=== PATIENT | female | born 1965 | race Caucasian/White ===

== ENCOUNTER 2016-09-19 19:00 | Emergency (ER) | payer BC, OTHER ==
[2016-09-19 19:24] VITALS: BP 115/62
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
== END 2016-09-19 19:47 | disposition home or self-care (01) ==
LOC: UCCORT 19:00
DX: S39.012A Strain of muscle, fascia and tendon of lower back, initial encounter (principal); V40.5XXA Car driver injured in collision with pedestrian or animal in traffic accident, initial encounter; Y93.89 Activity, other specified; Y92.410 Unspecified street and highway as the place of occurrence of the external cause; Z88.1 Allergy status to other antibiotic agents; Z88.7 Allergy status to serum and vaccine; Z87.891 Personal history of nicotine dependence
CPT/HCPCS: 99212; G0463

== ENCOUNTER 2018-02-06 19:00 | Emergency (ER) | payer BC, OTHER ==
[2018-02-06 19:26] VITALS: BP 112/75
--- NOTE | 2018-02-06 20:23 | ED ---
GI/ HPI - HPI Summary HPI Summary: 53 yr old with dysuria, frequency, and some blood in urine. Onset of symptoms two days ago. No abdominal pain or back pain. no fever or chills. No other complaints. - History of Current Complaint Chief Complaint: UCGU Time Seen by Provider: 02/06/18 19:36 Stated Complaint: URINARY COMPLAINT Hx Last Menstrual Period: 2003 Pain Intensity: 2 - Additional Pertinent History Primary Care Physician: NIMO - Allergy/Home Medications Allergies/Adverse Reactions: Allergies Allergy/AdvReac Type Severity Reaction Status Date / Time hydrocodone Allergy Nausea And Verified 02/06/18 19:22 Vomiting pineapple Allergy Swelling Verified 02/06/18 19:22 Of Face,Lips,& Throat pneumococcal vaccine Allergy Swelling Verified 02/06/18 19:22 [From Pneumovax 23] raw tomato Allergy Intermediate THROAT Uncoded 02/06/18 19:22 SWELLS, ITCHING seasonal allergies Allergy Eyes Uncoded 02/06/18 19:22 Itchy/Swollen/Red/Watery PMH/Surg Hx/FS Hx/Imm Hx Endocrine/Hematology History: Reports: Hx Blood Transfusions - After D&C Denies: Hx Diabetes, Hx Thyroid Disease Cardiovascular History: Reports: Hx Cardiac Arrest - During D&C surgery, Other Cardiovascular Problems/Disorders - LYMPHEDEMA LEGS BILATERAL Denies: Hx Hypertension, Hx Pacemaker/ICD Respiratory History: Reports: Hx Asthma, Hx Sleep Apnea - evaluation for 02/2014 , Other Respiratory Problems/Disorders - hx pneumothorax Denies: Hx Chronic Obstructive Pulmonary Disease (COPD) GI History: Reports: Hx Gall Bladder Disease, Other GI Disorders - colitis Denies: Hx Cirrhosis, Hx Ulcer History: Reports: Other Problems/Disorders - HYSTERECTOMY 2003 Denies: Hx Renal Disease Musculoskeletal History: Reports: Other Musculoskeletal History - lymphedema bilateral LE's Sensory History: Reports: Hx Contacts or Glasses - Reading glasses Denies: Hx Hearing Aid Opthamlomology History: Reports: Hx Contacts or Glasses - Reading glasses Psychiatric History: Reports: Hx Depression, Hx Panic Disorder - Cancer History Hx Chemotherapy: No Hx Radiation Therapy: No - Surgical History Surgery Procedure, Year, and Place: hysterectomy 2003. d and c and with subsequent femoral artery repair and lung collapse. GALL BLADDER REMOVAL - 06/17 Hx Anesthesia Reactions: No Infectious Disease History: No Infectious Disease History: Denies: Hx Clostridium Difficile, Hx Hepatitis, Hx Human Immunodeficiency Virus (HIV), Hx of Known/Suspected MRSA, Hx Shingles, Hx Tuberculosis, Hx Known/ Suspected VRE, Hx Known/Suspected VRSA, History Other Infectious Disease, Traveled Outside the [place] in Last 30 Days - Family History Known Family History: Positive: Hypertension - Social History Alcohol Use: Occasionally Alcohol Amount: 1 GLASS WINE/MONTH Substance Use Type: Reports: None Smoking Status (MU): Former Smoker Type: Cigarettes Amount Used/How Often: 1/2 PPD FOR 9 YRS Length of Time of Smoking/Using Tobacco: 8 years Have You Smoked in the Last Year: No Review of Systems Constitutional: Negative Positive: dysuria, frequency All Other Systems Reviewed And Are Negative: Yes Physical Exam Triage Information Reviewed: Yes Vital Signs On Initial Exam: Initial Vitals Temp Pulse Resp BP Pulse Ox 98.9 F 69 17 112/75 98 02/06/18 19:18 02/06/18 19:18 02/06/18 19:18 02/06/18 19:18 02/06/18 19:18 Vital Signs Reviewed: Yes Appearance: Positive: Well-Appearing, No Pain Distress Skin: Positive: Warm, Skin Color Reflects Adequate Perfusion Head/Face: Positive: Normal Head/Face Inspection Eyes: Positive: EOMI ENT: Positive: Normal ENT inspection Neck: Positive: Nontender Respiratory/Lung Sounds: Positive: Clear to Auscultation, Breath Sounds Present Cardiovascular: Positive: RRR. Negative: Murmur Abdomen Description: Positive: Nontender. Negative: CVA Tenderness (R), CVA Tenderness (L) Musculoskeletal: Positive: Strength/ROM Intact Neurological: Positive: Sensory/Motor Intact, Alert, Oriented to Person Place, Time, CN Intact II-III Psychiatric: Positive: Normal - Shakira Coma Scale Best Eye Response: 4 - Spontaneous Best Motor Response: 6 - Obeys Commands Best Verbal Response: 5 - Oriented Coma Scale Total: 15 Diagnostics - Vital Signs Vital Signs Temp Pulse Resp BP Pulse Ox 02/06/18 19:18 98.9 F 69 17 112/75 98 - Laboratory Lab Results: Lab Results 02/06/18 Range/Units 19:38 POC Urine Color Other POC Urine Clarity Turbid POC Urine pH 5.5 (5-9) POC Ur Specif [place] >= 1.030 (1.010-1.030) POC Urine Protein 2+ A (Negative) POC Ur Glucose (UA) Negative (Negative) POC Urine Ketones 1+ A (Negative) POC Urine Blood 3+ A (Negative) POC Urine Nitrite Positive A (Negative) POC Urine Bilirubin Negative (Negative) POC Urine Urobilinogen 1.0 (Negative) POC U Leukocyte Esteras 2+ A (Negative) Lab Statement: Any lab studies that have been ordered have been reviewed, and results considered in the medical decision making process. GIGU Course/Dx - Course Course Of Treatment: 53 yrold with UTI. Rx with bactrim DS. - Diagnoses Provider Diagnoses: UTI (urinary tract infection) Discharge - Sign-Out/Discharge Documenting (check all that apply): Discharge/Admit/Transfer - Discharge Plan Condition: Good Disposition: HOME Prescriptions: Sulfamethox/Trimethoprim DS* [Bactrim DS 800/160 TAB*] 1 tab PO BID #14 tab Patient Education Materials: Urinary Tract Infection in Women (ED) Referrals: Tonya Loredo NP [Primary Care Provider] - - Billing Disposition and Condition Condition: GOOD Disposition: Home
== END 2018-02-06 20:26 | disposition home or self-care (01) ==
LOC: UCCORT 19:00
DX: N39.0 Urinary tract infection, site not specified (principal); Z88.5 Allergy status to narcotic agent; Z88.7 Allergy status to serum and vaccine; Z91.018 Allergy to other foods; Z86.74 Personal history of sudden cardiac arrest; Z87.891 Personal history of nicotine dependence
CPT/HCPCS: 81003; 87077; 87086; 87186; 99212; G0463

== ENCOUNTER 2018-05-08 13:59 | Emergency (ER) | payer BC ==
[2018-05-08 14:49] VITALS: BP 156/89
--- NOTE | 2018-05-08 15:00 | UC ---
Lower Extremity/Ankle HPI - HPI Summary HPI Summary: Patient states that she stepped on a nail in her barn that went through her sandal yesterday. Today, the site has gotten a little swollen and red. She denies any foreign body sensation, fever and chills. Her last tetanus is within the past 10 years- 7 years ago. Nail came out whole. - History of Current Complaint Chief Complaint: UCLowerExtremity Stated Complaint: LEFT FOOT COMPLAINT Time Seen by Provider: 05/08/18 14:42 Hx Obtained From: Patient Hx Last Menstrual Period: 2003 Onset/Duration: Gradual Onset Pain Intensity: 2 Aggravating Factor(s): Standing Able to Bear Weight: Yes - Allergies/Home Medications Allergies/Adverse Reactions: Allergies Allergy/AdvReac Type Severity Reaction Status Date / Time hydrocodone Allergy Nausea And Verified 02/06/18 19:22 Vomiting pineapple Allergy Swelling Verified 02/06/18 19:22 Of Face,Lips,& Throat pneumococcal vaccine Allergy Swelling Verified 02/06/18 19:22 [From Pneumovax 23] raw tomato Allergy Intermediate THROAT Uncoded 02/06/18 19:22 SWELLS, ITCHING seasonal allergies Allergy Eyes Uncoded 02/06/18 19:22 Itchy/Swollen/Red/Watery PMH/Surg Hx/FS Hx/Imm Hx - Additional Past Medical History Additional PMH: Lymphedema - Surgical History Surgical History: Yes Surgery Procedure, Year, and Place: hysterectomy 2004. d and c and with subsequent femoral artery repair and lung collapse. GALL BLADDER REMOVAL - 06/17 - Family History Known Family History: Positive: Hypertension - Social History Occupation: Employed Full-time Alcohol Use: Occasionally Alcohol Amount: 1 GLASS WINE/MONTH Substance Use Type: None Smoking Status (MU): Former Smoker Type: Cigarettes Amount Used/How Often: 1/2 PPD FOR 9 YRS Length of Time of Smoking/Using Tobacco: 8 years Have You Smoked in the Last Year: No When Did the Patient Quit Smoking/Using Tobacco: 7 years ago - Immunization History Most Recent Influenza Vaccination: Not this season Most Recent Tetanus Shot: 2010 Most Recent Pneumonia Vaccination: September 2013 Hx Tetanus, Diphtheria Vaccination: Yes Vaccination Up to Date: Yes Review of Systems Constitutional: Negative Skin: Rash - L foot red/mild swelling Eyes: Negative ENT: Negative Respiratory: Negative Cardiovascular: Negative Gastrointestinal: Negative Genitourinary: Negative Motor: Negative Neurovascular: Negative Musculoskeletal: Negative Neurological: Negative Psychological: Negative Is Patient Immunocompromised?: No All Other Systems Reviewed And Are Negative: Yes Physical Exam Triage Information Reviewed: Yes Appearance: Well-Appearing Vital Signs: Initial Vital Signs Temp 98.5 F 05/08/18 14:40 Pulse 78 05/08/18 14:40 Resp 19 05/08/18 14:40 BP 156/89 05/08/18 14:40 Pulse Ox 99 05/08/18 14:40 Eyes: Positive: Conjunctiva Clear ENT: Positive: Normal ENT inspection Neck: Positive: Supple, Nontender, No Lymphadenopathy Respiratory: Positive: Lungs clear, Normal breath sounds Cardiovascular: Positive: RRR, No Murmur Abdomen Description: Positive: Nontender, No Organomegaly, Soft Bowel Sounds: Positive: Present Musculoskeletal: Positive: ROM Intact Neurological: Positive: Alert Psychological: Positive: Age Appropriate Behavior Skin Exam: Normal, Other - PW ball of L foot around base of great toe with mild redness and swelling. No streaking or d/c. No bony tenderness. Foot has full s/v /m function. Lower Extremity Course/Dx - Course Course Of Treatment: pt declined xray. will tx with cipro to cover pseudomonas. need for close f/u and recheck stresses. advised pt of risk for tendinopathy but benefit at this time outweighs risk. - Differential Dx/Diagnosis Provider Diagnoses: Infected PW L foot. Discharge - Sign-Out/Discharge Documenting (check all that apply): Patient Departure All imaging exams completed and their final reports reviewed: No Studies - Discharge Plan Condition: Stable Disposition: HOME Prescriptions: Ciprofloxacin TAB* [Cipro 500 MG TAB*] 500 mg PO BID 10 Days #20 tab Patient Education Materials: Puncture Wound (ED) Referrals: Tonya Loredo NP [Primary Care Provider] - 2 Days - Billing Disposition and Condition Condition: STABLE Disposition: Home
== END 2018-05-08 15:07 | disposition home or self-care (01) ==
LOC: UCCORT 13:59
DX: S91.332A Puncture wound without foreign body, left foot, initial encounter (principal); L08.9 Local infection of the skin and subcutaneous tissue, unspecified; W22.8XXA Striking against or struck by other objects, initial encounter; Y93.01 Activity, walking, marching and hiking; Y92.71 Barn as the place of occurrence of the external cause; Z88.5 Allergy status to narcotic agent; Z87.891 Personal history of nicotine dependence
CPT/HCPCS: 99212; G0463

== ENCOUNTER 2019-06-04 21:41 | Emergency (ER) | payer BC ==
[2019-06-04 21:53] VITALS: BP 134/87
--- NOTE | 2019-06-04 22:00 | UC ---
Skin Complaint HPI - HPI Summary HPI Summary: Patient presents urgent care for evaluation of a rapidly progressive itchy rash on her bilateral arms. Patient states she mowed the lawn earlier today. Patient states after she mowed the lawn to religion and noticed a rash on her left lower arm. Patient states she took a shower. Patient states initially that helped but does seem to spread. Patient took Benadryl at home with the itching. Patient states in general she is alert to person but does not know what she came in contact with. No facial swelling difficulty breathing shortness of breath or wheeze. Patient states the rash is nowhere other than her bilateral arms. Patient denies lightheadedness. No headache. No nausea vomiting. Medications reviewed - History of Current Complaint Chief Complaint: UCRash Time Seen by Provider: 06/04/19 21:56 Stated Complaint: RASH Hx Obtained From: Patient Hx Last Menstrual Period: 2003 Pain Intensity: 0 - Allergy/Home Medications Allergies/Adverse Reactions: Allergies Allergy/AdvReac Type Severity Reaction Status Date / Time hydrocodone Allergy Nausea And Verified 06/04/19 21:54 Vomiting pineapple Allergy Swelling Verified 06/04/19 21:54 Of Face,Lips,& Throat pneumococcal vaccine Allergy Swelling Verified 06/04/19 21:54 [From Pneumovax 23] raw tomato Allergy Intermediate THROAT Uncoded 06/04/19 21:54 SWELLS, ITCHING seasonal allergies Allergy Eyes Uncoded 06/04/19 21:54 Itchy/Swollen/Red/Watery PMH/Surg Hx/FS Hx/Imm Hx Previously Healthy: Yes - Surgical History Surgical History: Yes Surgery Procedure, Year, and Place: hysterectomy 2004. d and c and with subsequent femoral artery repair and lung collapse. GALL BLADDER REMOVAL - 06/17 - Family History Known Family History: Positive: Hypertension, Non-Contributory - Social History Occupation: Employed Full-time Lives: With Family Alcohol Use: Occasionally Alcohol Amount: 1 GLASS WINE/MONTH Substance Use Type: None Smoking Status (MU): Current Every Day Smoker Type: Cigarettes Amount Used/How Often: 4-5 cigs/day Length of Time of Smoking/Using Tobacco: 8 years Have You Smoked in the Last Year: No When Did the Patient Quit Smoking/Using Tobacco: 7 years ago - Immunization History Most Recent Influenza Vaccination: Not this season Most Recent Tetanus Shot: 2010 Most Recent Pneumonia Vaccination: September 2013 Hx Tetanus, Diphtheria Vaccination: Yes Vaccination Up to Date: Yes Review of Systems All Other Systems Reviewed And Are Negative: Yes Constitutional: Positive: Negative Skin: Positive: Rash Eyes: Positive: Negative ENT: Positive: Negative Respiratory: Positive: Negative Physical Exam - Summary Physical Exam Summary: Vital Signs Reviewed: Yes A+Ox3, itchy Eyes; no injected ENT: Hearing grossly normal mmoist Neck: Positive: Supple Respiratory: Positive: No respiratory distress, No accessory muscle use + CTA throughout no w/r Cardiovascular: RRR nl s1, s2 no m/r CBT <2 sec abd soft + BS nt/nd no guarding, no distension Musculoskeletal Exam: PERAZA x 4 without difficulty Strength Intact, ROM Intact Neurological: Positive: Alert, + sensation throughout Psychological: Positive: Normal Response To examiner Skin: Positive: Pt with bilatearl erythema b/l forearms. few visible hives, no open lesions pruritic Triage Information Reviewed: Yes Vital Signs: Initial Vital Signs Temp 98.1 F 06/04/19 21:49 Pulse 98 06/04/19 21:49 Resp 18 06/04/19 21:49 BP 134/87 06/04/19 21:49 Pulse Ox 99 06/04/19 21:49 Course/Dx - Course Course Of Treatment: Patient presents to urgent care for evaluation of acute development of rash on bilateral forearms. Patient states she mowed the lawn when she came in her on the left arm. Patient states she took a shower to wash all patient's in the shower she developed itching on both forearms. Patient denies fevers or chills. Patient no facial swelling or difficulty breathing. On exam patient appears uncomfortable. Patient itching bilateral forearms. Patient states she did take Benadryl prior to arrival. Patient does have subtle hives and diffuse erythema along both forearms. No other concerning findings on exam. Discussed with patient reaction. Will start patient on prednisone. Continue Benadryl. Pepcid as needed. Cool packs. Patient comfortable with plan. Strict return precautions discussed. - Diagnoses Provider Diagnosis: Rash Discharge ED - Sign-Out/Discharge Documenting (check all that apply): Patient Departure All imaging exams completed and their final reports reviewed: No Studies - Discharge Plan Condition: Stable Disposition: HOME Prescriptions: predniSONE TAB* [Deltasone 20 MG TAB*] 20 mg PO DAILY #11 tab Patient Education Materials: Acute Rash (ED) Referrals: Tonya Loredo, [facility] [Primary Care Provider] - Additional Instructions: - Take prednisone exactly as prescribed until gone - starting today - Okay to take Benadryl (1-2 tablets) every 6 hours as needed. This medication may cause drowsiness - do NOT drive, operate machinery or drink alcohol while taking Benadryl -Avoid getting over heated (hot showers, hot tubs, exercise) for at least 48 hours - Try to avoid aspirin, NSAIDs (Motrin, Aleve, Naprosyn) for 2-3 days - Okay to apply cool compresses to the area of injury -Contact your doctor or return here with questions or concerns - if you develop difficulty breathing, swallowing, facial swelling, blisters or other concerns it is recommended you go immediately to the emergency department - okay to call 911 - Billing Disposition and Condition Condition: STABLE Disposition: Home
[2019-06-04] MEDS ORDERED: predniSONE TAB* 20 MG PO ONE (22:06)
== END 2019-06-04 22:12 | disposition home or self-care (01) ==
LOC: UCCORT 21:41
DX: R21 Rash and other nonspecific skin eruption (principal); L50.9 Urticaria, unspecified; F17.210 Nicotine dependence, cigarettes, uncomplicated; Z88.5 Allergy status to narcotic agent; Z91.018 Allergy to other foods; Z88.7 Allergy status to serum and vaccine; Z91.09 Other allergy status, other than to drugs and biological substances
CPT/HCPCS: 99212; G0463; J7512

== ENCOUNTER 2019-06-22 13:09 | Emergency (ER) | payer BC ==
[2019-06-22 13:26] VITALS: BP 119/81
--- NOTE | 2019-06-22 13:57 | UC ---
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 Pt states that she has a hx of possible colitis but has not followed up with PCP or GI provider in the last 5 years. Pt states that she regularly has loose stools adn manages it at home with pepto bismol and is able to control frequency and urgency of stool. However, in the last 1-2 weeks she has had more frequent episodes of diarrhea and noticed bright red stools. Pt also reports burning with urination - History of Current Complaint Chief Complaint: UCGU Stated Complaint: URINARY COMPLAINT Time Seen by Provider: 06/22/19 13:37 Hx Obtained From: Patient Hx Last Menstrual Period: 2003 ?: No Onset/Duration: Gradual Onset, Lasting Weeks, Still Present, Worse Since - onset Timing: Intermittent Episodes Lasting: Severity Initially: Mild Severity Currently: Moderate Pain Intensity: 6 Location: Diffuse Radiates: No Radiates to: Back Character: Colicy, Cramping, Dull Aggravating Factor(s): Nothing Alleviating Factor(s): Other: - pepto bismol Associated Signs and Symptoms: Positive: Back Pain, Urinary Symptoms, Diarrhea - Risk Factors Ectopic Risk Factor: Negative Ovarian Torsion Risk Factor: Negative Allergies/Adverse Reactions: Allergies Allergy/AdvReac Type Severity Reaction Status Date / Time hydrocodone Allergy Nausea And Verified 06/22/19 13:26 Vomiting pineapple Allergy Swelling Verified 06/22/19 13:26 Of Face,Lips,& Throat pneumococcal vaccine Allergy Swelling Verified 06/22/19 13:26 [From Pneumovax 23] raw tomato Allergy Intermediate THROAT Uncoded 06/22/19 13:26 SWELLS, ITCHING seasonal allergies Allergy Eyes Uncoded 06/22/19 13:26 Itchy/Swollen/Red/Watery Home Medications: Home Medications NK [No Home Medications Reported] 06/22/19 [History Confirmed 06/22/19] PMH/Surg Hx/FS Hx/Imm Hx Previously Healthy: Yes - Surgical History Surgical History: Yes Surgery Procedure, Year, and Place: hysterectomy 2003. d and c and with subsequent femoral artery repair and lung collapse. GALL BLADDER REMOVAL - 06/17 - Family History Known Family History: Positive: Hypertension, Non-Contributory - Social History Occupation: Employed Full-time Lives: Alone Alcohol Use: Occasionally Alcohol Amount: 1 GLASS WINE/MONTH Substance Use Type: None Smoking Status (MU): Current Every Day Smoker Type: Cigarettes Amount Used/How Often: 4-5 cigs/day Length of Time of Smoking/Using Tobacco: 8 years Have You Smoked in the Last Year: No When Did the Patient Quit Smoking/Using Tobacco: 7 years ago - Immunization History Most Recent Influenza Vaccination: Not this season Most Recent Tetanus Shot: 2010 Most Recent Pneumonia Vaccination: September 2013 Hx Tetanus, Diphtheria Vaccination: Yes Vaccination Up to Date: Yes Review of Systems All Other Systems Reviewed And Are Negative: Yes Constitutional: Positive: Negative Skin: Positive: Negative Eyes: Positive: Negative ENT: Positive: Negative Respiratory: Positive: Negative Cardiovascular: Positive: Negative Gastrointestinal: Positive: Abdominal Pain, Diarrhea Genitourinary: Positive: Dysuria Motor: Positive: Negative Neurovascular: Positive: Negative Musculoskeletal: Positive: Negative Psychological: Positive: Negative Is Patient Immunocompromised?: No Physical Exam Triage Information Reviewed: Yes Appearance: Well-Appearing, Obese Vital Signs: Initial Vital Signs Temp 99.6 F 06/22/19 13:21 Pulse 81 06/22/19 13:21 Resp 18 06/22/19 13:21 BP 119/81 06/22/19 13:21 Pulse Ox 100 06/22/19 13:21 Vital Signs Reviewed: Yes Eye Exam: Normal ENT Exam: Normal ENT: Positive: Hearing grossly normal Dental Exam: Normal Neck exam: Normal Respiratory Exam: Normal Cardiovascular Exam: Normal Abdominal Exam: Normal Abdomen Description: Positive: Nontender Musculoskeletal Exam: Normal Neurological Exam: Normal Psychological Exam: Normal Skin Exam: Normal Abd Pain Female Course/Dx - Course Course Of Treatment: I discussed my concerns with the pt and recommended that she follow up immediately with a PCP and GI provider as soon as possible. Pt verbalized understanding and agree to plan of care. - Differential Dx/Diagnosis Differential Diagnosis: Diverticulitis, Irritable Bowel Syndrome, Urinary Tract Infection Provider Diagnosis: Gastroenteritis Discharge ED - Sign-Out/Discharge Documenting (check all that apply): Patient Departure All imaging exams completed and their final reports reviewed: No Studies - Discharge Plan Condition: Stable Disposition: HOME Patient Education Materials: Loperamide (By mouth), Chronic Diarrhea (ED), Abdominal Pain (ED) Referrals: Tonya Loredo NP [Primary Care Provider] - As Soon As Possible Additional Instructions: Please follow up with your PCP and your [employer] Wheel [employer] provider as soon as possible. - Billing Disposition and Condition Condition: STABLE Disposition: Home
== END 2019-06-22 14:11 | disposition home or self-care (01) ==
LOC: UCCORT 13:09
DX: K52.9 Noninfective gastroenteritis and colitis, unspecified (principal); F17.210 Nicotine dependence, cigarettes, uncomplicated; Z91.09 Other allergy status, other than to drugs and biological substances; Z88.5 Allergy status to narcotic agent; Z91.018 Allergy to other foods; Z88.7 Allergy status to serum and vaccine
CPT/HCPCS: 81003; 82272; 87045; 87046; 87899; 99212; G0463